=== PATIENT | female | born 1985 | race American Indian/Alaskan Native ===

== ENCOUNTER 2020-05-18 15:40 | Emergency (ER) | payer OTHER ==
[2020-05-18] MEDS ORDERED: ONDANSETRON 4 MG/2 ML INJ IV ONE (16:58)
[2020-05-18] MEDS ORDERED: fentaNYL 100 MCG/2 ML INJ IV ONE (16:58)
[2020-05-18] MEDS ORDERED: SODIUM CHLORIDE 0.9% 1000 ML 1,000 ML IV ONE (17:00)
--- NOTE | 2020-05-18 17:04 | Emergency Department Report ---
HPI - General Chief Complaint: Abdominal Pain Time Seen by Provider: 05/18/20 16:50 - HPI HPI: Room 10 The patient is a 35-year-old female present with a chief complaint of abdominal pain. Patient states she developed pain in the left lower quadrant of her abdomen last night described as tearing in nature. Patient states the pain is intermittent and does not change with movement. Patient admits to nausea but denies vomiting. Patient denies fever, dysuria or diarrhea. The patient states approximate 1.5 weeks ago she noticed hematuria. Patient currently gives her pain a score 4-5/10. Patient denies vaginal discharge or sick contacts ED Past Medical Hx - Past Medical History Hx of Cancer: Yes (Thyroid CA 2004 s/p surg and xrt) - Surgical History Additional Surgical History: Thyroidectomy - Family History Family history: no significant - Social History Smoking Status: Never Smoker Substance Use Type: Alcohol (Occasional), Marijuana - Medications Home Medications: Home Medications Medication Instructions Recorded Confirmed Last Taken Type HYDROcodone/APAP 5-325 [Surprise 1 - 2 each PO Q6HR PRN #10 tablet 05/18/20 Unknown Rx 5/325] Promethazine [Phenergan] 25 mg [place] Q6HR PRN #5 supp.rect 05/18/20 Unknown Rx levoFLOXacin [Levaquin TAB] 500 mg PO QDAY #7 tablet 05/18/20 Unknown Rx ED Review of Systems ROS: Stated complaint: ABDOMINAL PAIN Other details as noted in HPI Constitutional: denies: fever Eyes: denies: eye pain ENT: denies: throat pain Respiratory: no symptoms reported Cardiovascular: denies: chest pain Endocrine: no symptoms reported Gastrointestinal: abdominal pain, nausea. denies: vomiting Genitourinary: hematuria. denies: dysuria, discharge Neurological: denies: headache Physical Exam - Physical Exam Physical Exam: GENERAL: The patient is well-developed well-nourished female lying on stretcher appearing to be in mild discomfort. [] HEENT: Normocephalic. Atraumatic. Extraocular motions are intact. Patient has moist mucous membranes. NECK: Supple. Trachea midline CHEST/LUNGS: Clear to auscultation. There is no respiratory distress noted. HEART/CARDIOVASCULAR: Regular. There is no tachycardia. There is no gallop rub or murmur. ABDOMEN: Abdomen is soft, with tenderness to palpation in the left upper quadrant, left lower quadrant and suprapubic region. Patient has normal bowel sounds. There is no abdominal distention. SKIN: There is no rash. There is no edema. There is no diaphoresis. NEURO: The patient is awake, alert, and oriented. The patient is cooperative. The patient has normal speech MUSCULOSKELETAL: There is bilateral CVA tenderness. There is no evidence of acute injury. ED Medical Decision Making - Lab Data Result diagrams: 05/18/20 17:38 05/18/20 17:38 Laboratory Tests 05/18/20 05/18/20 05/18/20 17:35 17:38 17:38 WBC 7.9 RBC 4.18 Hgb 12.1 Hct 36.1 MCV 86 MCH 29 MCHC 34 RDW 16.4 H Plt Count 286 Lymph % (Auto) 26.9 Crane % (Auto) 6.7 Eos % (Auto) 0.2 Baso % (Auto) 0.5 Lymph # (Auto) 2.1 Crane # (Auto) 0.5 Eos # (Auto) 0.0 Baso # (Auto) 0.0 Seg Neutrophils % 65.7 Seg Neutrophils # 5.2 Sodium 136 L Potassium 3.3 L Chloride 102.2 Carbon Dioxide 25 Anion Gap 12 BUN 6 L Creatinine 0.9 Estimated GFR > 60 BUN/Creatinine Ratio 7 Glucose 99 Calcium 8.9 Total Bilirubin 0.30 AST 19 ALT 14 Alkaline Phosphatase 71 Total Protein 7.2 Albumin 3.8 L Albumin/Globulin Ratio 1.1 Lipase 35 HCG, Qual Urine Color Yellow Urine Turbidity Cloudy Urine pH 7.0 Ur Specific [place] 1.013 Urine Protein <15 mg/dl Urine Glucose (UA) Neg Urine Ketones Tr Urine Blood Neg Urine Nitrite Neg Urine Bilirubin Neg Urine Urobilinogen 2.0 Ur Leukocyte Esterase Tr Urine WBC (Auto) 4.0 Urine RBC (Auto) 2.0 U Epithel Cells (Auto) 5.0 Urine Bacteria (Auto) 1+ Urine Mucus 1+ 05/18/20 17:38 WBC RBC Hgb Hct MCV MCH MCHC RDW Plt Count Lymph % (Auto) [place] % (Auto) Eos % (Auto) Baso % (Auto) Lymph # (Auto) [place] # (Auto) Eos # (Auto) Baso # (Auto) Seg Neutrophils % Seg Neutrophils # Sodium Potassium Chloride Carbon Dioxide Anion Gap BUN Creatinine Estimated GFR BUN/Creatinine Ratio Glucose Calcium Total Bilirubin AST ALT Alkaline Phosphatase Total Protein Albumin Albumin/Globulin Ratio Lipase HCG, Qual Negative Urine Color Urine Turbidity Urine pH Ur Specific [place] Urine Protein Urine Glucose (UA) Urine Ketones Urine Blood Urine Nitrite Urine Bilirubin Urine Urobilinogen Ur Leukocyte Esterase Urine WBC (Auto) Urine RBC (Auto) U Epithel Cells (Auto) Urine Bacteria (Auto) Urine Mucus - Radiology Data Radiology results: report reviewed (CT abdomen pelvis), image reviewed (CT abdomen pelvis) [facility] [address] [place] [address] Cat Scan Report Signed Patient: VICK WISEMAN MR#: [id number] 911 : 05/08/1965 Acct:[id number] Age/Sex: 55 / F ADM Date: 05/18/20 Loc: ED Attending Dr: Ordering Physician: GAMALIEL WINTERS MD Date of Service: 05/18/20 Procedure(s): CT head/brain wo con Accession Number(s): [id number] cc: GAMALIEL WINTERS MD NONENHANCED CT SCAN OF THE HEAD: INDICATION / CLINICAL INFORMATION: 55 years Female; Headache. TECHNIQUE: Routine CT head without contrast. All CT scans at this location are performed using CT dose reduction for ALARA by means of automated exposure control. COMPARISON: None. FINDINGS: BRAIN / INTRACRANIAL CONTENTS: No acute hemorrhage, mass effect, midline shift, hydrocephalus, or acute, large territorial infarct. No chronic infarct or focal atrophy. Normal brain volume and ventricular/sulcal size for age. No significant white matter abnormality. CRANIOCERVICAL JUNCTION: No significant abnormality. ORBITS: No significant abnormality of visualized orbits. SINUSES / MASTOIDS: No significant abnormality of the visualized paranasal sinuses or mastoid air cells. ADDITIONAL FINDINGS: None. IMPRESSION: Normal CT scan of the head Signer Name: Fazal De La Garza MD Signed: 05/18/2020 3:01 PM Workstation Name: [id number] Transcribed By: BS Dictated By: Fazal De La aGrza MD Electronically Authenticated By: Fazal De La Garza MD Signed Date/Time: 05/18/20 1501 DD/ 1459 TD/TT: - Differential Diagnosis Diverticulitis, renal colic, pyelonephritis, UTI, ovarian cyst Critical care attestation.: If time is entered above; I have spent that time in minutes in the direct care of this critically ill patient, excluding procedure time. ED Disposition Clinical Impression: Acute abdominal pain, Bacteriuria, Nausea, Hypokalemia Disposition: DC/TX-65 PSY HOSP/PSY UNIT Is pt being admited?: No Does the pt Need Aspirin: No Condition: Stable Instructions: Asymptomatic Bacteriuria, Abdominal Pain, Adult, [id number], Abdominal Pain (ED) Additional Instructions: Return to the emergency department should you develop worsening symptoms, inability to tolerate food or liquids, high fever or any other concerns Prescriptions: levoFLOXacin [Levaquin TAB] 500 mg PO QDAY #7 tablet HYDROcodone/APAP 5-325 [[place] 5/325] 1 - 2 each PO Q6HR PRN #10 tablet PRN Reason: Pain Promethazine [Phenergan] 25 mg [place] Q6HR PRN #5 supp.rect PRN Reason: Vomiting Referrals: [facility] [Provider Group] - 3-5 Days Time of Disposition: 19:38
[2020-05-18 17:54] LABS: Basophils % (Auto) 0.5 % (0.0-1.8); Eosinophils % (Auto) 0.2 % (0.0-4.3); Hematocrit 36.1 % (30.3-42.9); Hemoglobin 12.1 gm/dl (10.1-14.3); Lymphocytes # (Auto) 2.1 K/mm3 (1.2-5.4); Lymphocytes % (Auto) 26.9 % (13.4-35.0); Mean Corpuscular HGB Conc 34 % (30-34); Mean Corpuscular Volume 86 fl (79-97); Monocytes # (Auto) 0.5 K/mm3 (0.0-0.8); Monocytes % (Auto) 6.7 % (0.0-7.3); Platelet Count 286 K/mm3 (140-440); Red Blood Count 4.18 M/mm3 (3.65-5.03); Red Cell Distribution Width 16.4 % (13.2-15.2)
[2020-05-18 18:03] LABS: Bacteria,Urine 1+ /HPF (Negative); Bilirubin,Urine NEG (Negative); Blood,Urine NEG (Negative); Color,Urine Yellow (Yellow); Mucus,Urine 1+ /HPF; Protein,Urine <15 mg/dL mg/dL (Negative)
[2020-05-18 18:13] LABS: Alanine Aminotransferase 14 units/L (7-56); Albumin 3.8 g/dL (3.9-5); BUN/Creatinine Ratio 7; Blood Urea Nitrogen 6 mg/dL (7-17); Calcium 8.9 mg/dL (8.4-10.2); Hemolysis Index 20
--- NOTE | 2020-05-18 19:34 | Cat Scan Report ---
CT abdomen pelvis w con INDICATION: Left lower quadrant abdominal pain. COMPARISON: None TECHNIQUE: Abdominal and pelvic CT exam performed. All CT scans at this location are performed using CT dose reduction for ALARA by means of automated exposure control. FINDINGS: CT ABDOMEN and PELVIS: Lung Bases: No significant abnormality. Liver: No significant abnormality. Biliary: No significant abnormality. Spleen: No significant abnormality. Pancreas: No significant abnormality. Adrenals: No significant abnormality. Kidneys: 3 cm left upper pole renal cyst. Lymphatics: No lymphadenopathy. Vasculature: No significant abnormality. Bowel: No significant abnormality. Normal appendix. Pelvis: retroverted uterus. No significant abnormality. Osseous Structures: No aggressive osseous lesion. Additional Findings: None IMPRESSION: 1. No significant abnormality of the abdomen or pelvis. Signer Name: Osvaldo Krause MD Signed: 05/18/2020 7:30 PM Workstation Name: [id number]
[2020-05-18] MEDS ORDERED: levoFLOXacin 500 MG TAB PO ONE (19:35)
[2020-05-18] MEDS ORDERED: POTASSIUM CHLORIDE ER 20 MEQ TAB PO ONE (19:38)
[2020-05-18 20:34] VITALS: BP 128/82
== END 2020-05-18 20:59 ==
LOC: ED 15:40
DX: R10.32 Left lower quadrant pain (principal); R82.71 Bacteriuria; R11.0 Nausea; E87.6 Hypokalemia; F12.10 Cannabis abuse, uncomplicated; Z85.850 Personal history of malignant neoplasm of thyroid
CPT/HCPCS: 36415; 74177; 80053; 81001; 83690; 84703; 85025; 96361; 96374; 99284; J2405; J3010; J7030; Q9967